=== PATIENT | male | born 1995 | race African-American/Black ===

== ENCOUNTER → 2017-08-27 | Outpatient (CLI) | payer MEDICAID | LOC: FIMAGING 18:40 | PROVIDERS: ATTEND Family Medicine Sports Medicine | DX: M54.5 Low back pain (principal); G89.29 Other chronic pain; Y93.65 Activity, lacrosse and field hockey ==

== ENCOUNTER 2018-02-20 16:14 | Emergency (ER) | payer MEDICAID ==
[2018-02-20 16:25] VITALS: BP 108/68
--- NOTE | 2018-02-20 16:37 | EDPHY ---
H & P Smoking Status: Never smoked Time Seen by Provider: 02/20/18 16:28 HPI/ROS: CHIEF COMPLAINT: Laceration right hand HISTORY OF PRESENT ILLNESS: 22-year-old male presents to the emergency department with laceration to the right 4th and 5th fingers. Patient was at home and accidentally cut his fingers on a knife. The incident happened just prior to arrival. He believes his tetanus shot is current. He is right-hand dominant. He was able to control the bleeding with firm direct pressure. ROS: Denies numbness or tingling in his fingers, retained foreign body, injury to the other fingers. (Jacqueline Trevino) Past Medical/Surgical History: Asthma (Olivia Trevinobebe Hussein) Social History: [employer] student (Olivia Trevinorinpaula Hussein) Physical Exam: On examination the patient has a 1 cm laceration to the base of the palmar aspect of the right 5th finger just proximal to the D IP joint. There is also a very small 0.5 cm laceration to the palmar aspect of the base of the 4th finger overlying proximal phalanx. Unable to fully flex the right 5th finger at PIP and D IP joints. No obvious tendon injury visualized. Full extension of his fingers. Full flexion of the other fingers. Normal sensation to light touch with normal 2 point discrimination. The other fingers do not appear injured. (Jacqueline Trevino) Constitutional: Initial Vital Signs Temperature (C) 36.8 C 02/20/18 16:22 Heart Rate 82 02/20/18 16:22 Respiratory Rate 18 02/20/18 16:22 Blood Pressure 108/68 02/20/18 16:22 O2 Sat (%) 95 02/20/18 16:22 O2 Delivery Mode Room Air Allergies/Adverse Reactions: No Known Allergies Allergy (Unverified 02/20/18 16:22) Home Medications: Medication Instructions Recorded Albuterol 02/20/18 Cephalexin [Keflex] 500 mg PO QID #28 cap 02/20/18 MDM/Departure - [facility] Procedures: Laceration repair #1. Verbal consent was obtained from the patient. The 1 cm laceration on the right little finger was anesthetized using 1% lidocaine with epinephrine. The wound was irrigated with saline, draped and explored to its base with a gloved finger. Patient is unable to flex at the PIP and D IP joints. Concerned about flexor tendon injury although this was not visualized. The skin was closed with 4 0 Ethilon, 2 sutures. The wound repair was simple. The procedure was performed by myself. Laceration repair #2. Verbal consent was obtained from the patient. The 0.5 cm laceration on the right 4th finger was anesthetized using 1% lidocaine with epinephrine. The wound was irrigated with saline, draped and explored to its base with a gloved finger. There were no deep structures involved. No tendon injury was identified. The wound was repaired with 4 0 Ethilon, 2 sutures. The wound repair was simple. The procedure was performed by myself. (Jacqueline Trevino) ED Course/Re-evaluation: 22-year-old male presents emergency department with laceration to his right 4th and 5th fingers. Concern for flexor tendon injury to the right 5th finger since he is unable to flex at the PIP and D IP joint although this was not visualized on exploration. His skin was closed. He was placed in a splint. He will be started on Keflex and he will follow up with orthopedic hand surgeon tomorrow. (Jacqueline Trevino) The patient was evaluated and managed by the physician clothing sales assistant. I have reviewed this chart and I agree with the findings and plan of care as documented , as indicated by my signature. I am the secondary supervising physician. ( Kady Christie) - Depart Disposition: Home, Routine, Self-Care Clinical Impression: Laceration of right little finger Qualifiers: Encounter type: initial encounter Damage to nail status: with damage Foreign body presence: without foreign body Qualified Code(s): S61.316A - Laceration without foreign body of right little finger with damage to nail, initial encounter Laceration of right ring finger Qualifiers: Encounter type: initial encounter Damage to nail status: without damage Foreign body presence: without foreign body Qualified Code(s): S61.214A - Laceration without foreign body of right ring finger without damage to nail, initial encounter Injury of flexor tendon of right hand Qualifiers: Encounter type: initial encounter Qualified Code(s): S66.801A - Unspecified injury of other specified muscles, fascia and tendons at wrist and hand level, right hand, initial encounter Condition: Good Instructions: Care For Your Stitches (ED), Laceration (ED), Acute Wounds (ED) Additional Instructions: Wound Care Follow-Up: Removal of sutures in 10 days. Suture removal is complimentary in uncomplicated cases. Infection or abnormal findings would require reevaluation by the MD. In that case, you may be billed. Keflex as directed for one week to prevent infection. Call hand surgeon supervisor contact and service clerks to arrange follow-up appointment to be seen tomorrow. Tell them that you were seen in the emergency department and you have a laceration to the right small finger, dominant hand with concern of flexor tendon injury and inability to flex your right small finger. Ibuprofen 600 mg every 8 hr as needed for pain. Return to the emergency department if you develop any signs or symptoms of infection such as redness, swelling, increased pain, fever, purulent drainage. Stand Alone Forms: Statement of Treatment Prescriptions: Cephalexin [Keflex] 500 mg PO QID #28 cap Referrals: Marshall Osorio MD [Medical Doctor] - 1 day without fail (Hand surgeon on-call)
== END 2018-02-20 17:09 | disposition home or self-care (01) ==
PROC: 0HQFXZZ Repair Right Hand Skin, External Approach (ICD-10-PCS; principal; 2018-02-20)
DX: S61.316A Laceration without foreign body of right little finger with damage to nail, initial encounter (principal); S61.214A Laceration without foreign body of right ring finger without damage to nail, initial encounter; S66.801A Unspecified injury of other specified muscles, fascia and tendons at wrist and hand level, right hand, initial encounter; J45.909 Unspecified asthma, uncomplicated; W26.0XXA Contact with knife, initial encounter

== ENCOUNTER 2018-02-25 08:16 | Day surgery (SDC) | payer MEDICAID ==
[2018-02-25] MEDS ORDERED: LR 1,000 ML IV ONE (08:40)
[2018-02-25] MEDS ORDERED: LIDOCAINE 1% 2 ML INJ ID PRN (08:40)
--- NOTE | 2018-02-25 09:33 | PDHPUP ---
History & Physical Update H&P update statement: This history and physical update is based on an assessment of the patient which was completed after admission or registration (within 24 hours), but prior to the surgery/procedure. H&P update: H&P reviewed & patient examined, no change in patient's condition since H&P completed
[2018-02-25] MEDS ORDERED: BUPIVACAINE/EPI 0.5% 30 ML SDV ONE (09:35)
[2018-02-25] MEDS ORDERED: BACITRACIN 50,000 UNITS/10 ML SYR IRR ONE (09:36)
[2018-02-25] MEDS ORDERED: MIDAZOLAM 2 MG/2 ML VIAL IVP ONE (09:39)
--- NOTE | 2018-02-25 09:39 | PDANEPAE ---
ANE History of Present Illness 22 yo for tendon repair r hand ANE Past Medical History - Cardiovascular History Hx Hypertension: No Hx Arrhythmias: No Hx Chest Pain: No Hx Coronary Artery / Peripheral Vascular Disease: No Hx CHF / Valvular Disease: No Hx Palpitations: No - Pulmonary History Hx COPD: No Hx Asthma/Reactive Airway Disease: Yes Hx Recent Upper Respiratory Infection: No Hx Oxygen in Use at Home: No Hx Sleep Apnea: No Sleep Apnea Screening Result - Last Documented: Negative Pulmonary History Comment: uses inhaler very occassionally- instructed pt to bring to hospital - Neurologic History Hx Cerebrovascular Accident: No Hx Seizures: No Hx Dementia: No - Endocrine History Hx Diabetes: No - Renal History Hx Renal Disorders: No - Liver History Hx Hepatic Disorders: No - Neurological & Psychiatric Hx Hx Neurological and Psychiatric Disorders: No - Cancer History Hx Cancer: No - Congenital Disorder History Hx Congenital Disorders: No - GI History Hx Gastrointestinal Disorders: No - Other Health History Other Health History: wears glasses for class only - Chronic Pain History Chronic Pain: No - Surgical History Prior Surgeries: right labrum repair 07/2012 ANE Review of Systems Review of Systems: - Exercise capacity METS (RN): 5 METS ANE Patient History - Allergies Allergies/Adverse Reactions: No Known Allergies Allergy (Verified 02/24/18 17:10) - Home Medications Home medications: home medication list seen and reviewed Home Medications: Albuterol 02/24/18 [Last Taken Unknown] Herbals/Supplements -Info Only 02/24/18 [Last Taken 02/24/18] - NPO status NPO Since - Liquids (Date): 02/24/18 NPO Since - Liquids (Time): 21:30 NPO Since - Solids (Date): 02/24/18 NPO Since - Solids (Time): 21:30 - Anes Hx Anes Hx: no prior problems - Smoking Hx Smoking Status: Never smoked - Family Anes Hx Family Hx Anesthesia Complications: none ANE Labs/Vital Signs - Vital Signs Blood Pressure: 115/76 Heart Rate: 62 Respiratory Rate: 16 O2 Sat (%): 95 Height: 5 ft 8 in Weight: 81.647 kg ANE Physical Exam - Airway Neck exam: FROM Mallampati Score: Class 2 Mouth exam: normal dental/mouth exam - Pulmonary Pulmonary: no respiratory distress - Cardiovascular Cardiovascular: regular rate and rhythym - ASA Status ASA Status: II ANE Anesthesia Plan Anesthesia Plan: GA w LMA
[2018-02-25] MEDS ORDERED: MIDAZOLAM 2 MG/2 ML VIAL ONE (09:45)
[2018-02-25] MEDS ORDERED: fentaNYL 250 MCG/5 ML INJ ONE (09:47)
[2018-02-25] MEDS ORDERED: PROPOFOL/EMULSION 500 MG/50 ML BOTTLE IV ONE (09:47)
[2018-02-25] MEDS ORDERED: ONDANSETRON 4 MG/2 ML VIAL ONE (09:50)
[2018-02-25] MEDS ORDERED: METOCLOPRAMIDE 10 MG/2 ML VIAL ONE (09:50)
[2018-02-25] MEDS ORDERED: DEXAMETHASONE 4 MG/ML VIAL ONE (09:50)
[2018-02-25] MEDS ORDERED: PROPOFOL 200 MG/20 ML VIAL ONE (11:04)
[2018-02-25] MEDS ORDERED: KETOROLAC 30 MG/1 ML SDV ONE (11:35)
[2018-02-25] MEDS ORDERED: HYDROmorphONE/DILAUDID 2 MG/ML INJ IVP PRN (12:13)
[2018-02-25] MEDS ORDERED: NALOXONE HCL 0.4 MG/ML INJ IVP PRN (12:13)
[2018-02-25] MEDS ORDERED: MEPERIDINE 25 MG/0.5 ML AMP IVP PRN (12:13)
[2018-02-25] MEDS ORDERED: oxyCODONE IR 5 MG TAB PO PRN (12:13)
[2018-02-25] MEDS ORDERED: ONDANSETRON 4 MG/2 ML VIAL IVP PRN (12:13)
[2018-02-25] MEDS ORDERED: PROMETHAZINE HCL 25 MG/ML INJ IVP PRN (12:13)
[2018-02-25] MEDS ORDERED: ALBUTEROL 3 ML DEYVIAL IH PRN (12:13)
[2018-02-25] MEDS ORDERED: fentaNYL 100 MCG/2 ML INJ IVP PRN (12:13)
[2018-02-25 13:20] VITALS: BP 112/72
--- NOTE | 2018-02-25 22:36 | GOP ---
[f rep st] OPERATIVE REPORT DATE OF OPERATION: 02/25/2018 SURGEON: Marshall Osorio MD ANESTHESIA: General. PREOPERATIVE DIAGNOSIS: Right small finger flexor digitorum superficialis and flexor digitorum profundus lacerations in zone 2. POSTOPERATIVE DIAGNOSIS: Right small finger flexor digitorum superficialis and flexor digitorum profundus lacerations in zone 2. PROCEDURE PERFORMED: Right small finger repair of flexor digitorum profundus, flexor digitorum superficialis tendons in zone 2, [place], primary repair. FINDINGS: ESTIMATED BLOOD LOSS: 5 cc. INDICATIONS: This patient is a 22-year-old male who sustained this injury less than a week ago when he caught a knife falling off the counter, lacerating his small finger and his ring finger. He was seen in the ER. The wounds were irrigated and closed. He was diagnosed with a flexor tendon laceration and saw me the next day. On examination, his function was intact to the ring finger. However, clinically, he had no FDS or FDP function of the small finger as nerves were intact. This is a flexor tendon laceration indicated for operative repair. I discussed with him risks and benefits of surgery. Risks of surgery include pain, bleeding, infection, damage to surrounding structures, stiffness, numbness, contracture, need for further surgery including tenolysis, and tendon rupture. He understood these risks and wished to proceed. DESCRIPTION OF PROCEDURE: The patient was seen in the preoperative holding area. He was given the opportunity to ask questions. All his questions were answered. Consent was signed. Surgical site was marked. He was transferred to the operative suite. Care was taken to pad all bony prominences on the gurney. Time-out was called, including surgical and anesthesia teams, confirming the surgical site and procedure performed. The right upper extremity was prepped and draped in the usual sterile fashion. An Esmarch was used to exsanguinate the to right upper extremity. The tourniquet was inflated to 250 mmHg. He had about a 1 cm transverse laceration just proximal to the DIP flexion crease. I extended this laceration both distally and proximally. Carefully I dissected down to the flexor tendon sheath. I identified the ulnar and radial digital nerves to be able to protect them at all times. I identified that he had a straight transverse laceration of the flexor tendon sheath and identified the FDS and FDP proximally. These were distal to the A1 holden. I pulled these in through the opening I had made in the holden system. This opening was made at the level of the A3 holden, leaving the A4 and A2 intact. I held this with a hypodermic needle. I identified the distal stumps of the FDS and fixed the FDS with [id number] sutures with 4-0 FiberWire. He had fairly small slips in the small finger. I then proceeded with the FDP flexor tendon repair. I was unable to deliver much of the tendon with flexion of the IP joint past the A4 holden. At the time I vented the A4 holden less than 25% and did not give enough room for repair, so I thus made a sheathotomy. I thus made a sheathotomy in the A4 holden, making a transverse opening in the A4 holden carefully with a 15 blade. I then used as opening for passing of the sutures. I first made a back wall repair first technique where I repaired the back wall with an epitendinous type stitch using a 6-0 Prolene, holding these off to the side. I then began a four strand locking cruciate repair and then the pass was made in the A4 holden. I passed these in and out of the sheathotomy. I was careful to ensure that the hodlen was not grabbed. I tensioned to each time as this was a locking suture. I then made my final pass and tied the suture. I then completed the epitendinous repair with a Silfverskiold-type stitch and tied this. This gave a very nice wound repair. I then checked the flexion and extension of the digit and measured the repair. The edge of the repair was catching on the A4 holden and thus I vented it some more. I then repaired the flexor tendon sheath with the 6-0 Prolene I had opened earlier and then the tourniquet was let down. The hand of the finger was well perfused. It was irrigated copiously with sterile saline, and the incisions were closed with 4-0 nylon. A sterile dressing was applied, and patient was placed in a dorsal block splint, awakened from general anesthesia in stable condition, and taken to PACU in stable condition. POSTOPERATIVE CONDITION: Stable. POSTOPERATIVE PLAN: The patient will follow up with the hand therapist this week to begin an early active type protocol. He will see me in 10-14 days. /[id number]/MODL MTDD
--- NOTE | 2018-02-26 08:01 | POSTANESTH ---
Post Anesthetic Evaluation Cardiovascular Status: Normal, Stable Respiratory Status: Normal, Stable Level of Consciousness/Mental Status: Can Participate in Eval Pain Control: Adequate, Prn Tx Ordered Nausea/Vomiting Control: Adequate, Prn Tx Ordered Complications Possibly Related to Anesthesia: None Noted
== END 2018-02-25 14:01 | disposition home or self-care (01) ==
LOC: FSGY 08:16
PROVIDERS: ATTEND Orthopaedic Surgery Hand Surgery
PROC: 0LQ70ZZ Repair Right Hand Tendon, Open Approach (ICD-10-PCS; principal; 2018-02-25 09:30)
DX: S56.121A Laceration of flexor muscle, fascia and tendon of right index finger at forearm level, initial encounter (principal); J45.909 Unspecified asthma, uncomplicated
CPT/HCPCS: J1100; J1885; J2250; J2405; J2704; J2765; J3010